=== PATIENT | male | born 1970 | race American Indian/Alaskan Native ===

== ENCOUNTER 2017-02-08 18:13 | Emergency (ER) | payer OTHER ==
[2017-02-08 19:15] LABS: Basophils % (Auto) 0.4 % (0.0-1.8); Eosinophils % (Auto) 0.2 % (0.0-4.3); Hematocrit 48.6 % (35.5-45.6); Hemoglobin 15.6 gm/dl (11.8-15.2); Mean Corpuscular HGB Conc 32 % (32-34); Mean Corpuscular Volume 78 fl (84-94); Platelet Count 279 K/mm3 (140-440); Red Blood Count 6.26 M/mm3 (3.65-5.03); Red Cell Distribution Width 14.6 % (13.2-15.2); White Blood Count 8.8 K/mm3 (4.5-11.0)
[2017-02-08 19:17] LABS: Mean Corpuscular Hemoglobin 25 pg (28-32)
[2017-02-08 19:25] LABS: Anion Gap 21 mmol/L; Blood Urea Nitrogen 8 mg/dL (9-20); Calcium 9.4 mg/dL (8.4-10.2); Carbon Dioxide 25 mmol/L (22-30); Glucose 175 mg/dL (75-100); Potassium 4.4 mmol/L (3.6-5.0); Sodium 140 mmol/L (137-145)
--- NOTE | 2017-02-09 03:00 | Emergency Department Report ---
ED Headache HPI - General Chief Complaint: Arrhythmia/Palpitations Stated Complaint: SHOULDER PAIN Time Seen by Provider: 02/09/17 02:54 Source: patient - History of Present Illness Initial Comments: Patient is a 46-year-old male with a history of several days of headache. He complains of pain in a bandlike sensation around his head intermittently 3-4 minutes at a time. He denies fevers chills nausea vomiting. He also states that he's had some heart palpitations off and on. He is going undergoing a significant amount of stress and is had episodes of anxiety in the past. He feels this is similar. He took some migraine medication with caffeine in it and he felt like it is set him off today. Currently all of his symptoms are resolved. Quality: moderate Head Injury Location: other (bandlike) Recent Head Trauma: no recent headache/trauma Associated Symptoms: denies: confusion, fatigue, facial pain, fever/chills Allergies/Adverse Reactions: Allergies No Known Allergies Allergy (Unverified 02/08/17 18:42) Home Medications: Ambulatory Orders Ibuprofen [Motrin 600 MG tab] 600 mg PO Q8H PRN #30 tablet 02/09/17 ED Review of Systems ROS: Stated complaint: SHOULDER PAIN Other details as noted in HPI Constitutional: denies: fever ENT: denies: ear pain, throat pain Cardiovascular: palpitations. denies: chest pain, dyspnea on exertion, orthopnea Gastrointestinal: denies: abdominal pain, nausea Musculoskeletal: denies: back pain, arthralgia Skin: denies: rash, lesions Neurological: headache. denies: weakness, numbness, paresthesias Psychiatric: denies: anxiety ED Past Medical Hx - Past Medical History Previous Medical History?: No - Surgical History Past Surgical History?: No - Family History Family history: no significant - Social History Smoking Status: Never Smoker Substance Use Type: None - Medications Home Medications: Home Medications Medication Instructions Recorded Confirmed Last Taken Type Ibuprofen [Motrin 600 MG tab] 600 mg PO Q8H PRN #30 tablet 02/09/17 Unknown Rx ED Physical Exam - General Limitations: No Limitations General appearance: alert, in no apparent distress - Head Head exam: Present: atraumatic, normocephalic - Eye Eye exam: Present: normal appearance - ENT ENT exam: Present: mucous membranes moist - Neck Neck exam: Present: normal inspection - Respiratory Respiratory exam: Present: normal lung sounds bilaterally. Absent: respiratory distress - Cardiovascular Cardiovascular Exam: Present: regular rate, normal rhythm. Absent: systolic murmur, diastolic murmur, rubs, gallop - GI/Abdominal GI/Abdominal exam: Present: soft, normal bowel sounds - Rectal Rectal exam: Present: deferred - Extremities Exam Extremities exam: Present: normal inspection - Back Exam Back exam: Present: normal inspection - Neurological Exam Neurological exam: Present: alert, oriented X3 - Psychiatric Psychiatric exam: Present: normal affect, normal mood - Skin Skin exam: Present: warm, dry, intact, normal color. Absent: rash ED Course Vital Signs 02/08/17 18:35 Temperature 98.4 F Pulse Rate 97 H Respiratory 18 Rate Blood Pressure 164/100 O2 Sat by Pulse 99 Oximetry ED Medical Decision Making - Lab Data Result diagrams: 02/08/17 18:54 02/08/17 18:54 Laboratory Results - last 24 hr 02/08/17 02/08/17 18:54 18:54 WBC 8.8 RBC 6.26 H Hgb 15.6 H Hct 48.6 H MCV 78 L MCH 25 L MCHC 32 RDW 14.6 Plt Count 279 Lymph % (Auto) 24.2 Ida % (Auto) 7.7 H Eos % (Auto) 0.2 Baso % (Auto) 0.4 Lymph # 2.1 Ida # 0.7 Eos # 0.0 Baso # 0.0 Seg Neutrophils % 67.5 Seg Neutrophils # 6.0 Sodium 140 Potassium 4.4 Chloride 98.0 Carbon Dioxide 25 Anion Gap 21 BUN 8 L Creatinine 0.8 Estimated GFR > 60 BUN/Creatinine Ratio 10.00 Glucose 175 H Calcium 9.4 Troponin T < 0.010 - EKG Data -: EKG Interpreted by Ks - EKG Data 02/09/17 02:58 Sinus rate of 98 and normal axis normal intervals poor R wave progression no ST- T wave changes - Medical Decision Making Isacc and is a 46-year-old male with a history of anxiety and stress here with complaint of headache palpitations. He states that all his symptoms are resolved currently. He feels like this is likely related to his anxiety. His workup appears negative he has a negative troponin and negative EKG. I do not suspect significant pathology. I discussed ways to reduce stress including exercise. Patient agrees with plan to increase his amount of exercise. Do not plan to start anxiety meds currently. Portions of this chart were dictated with dictation software. There may be dictation errors contained within this note. Critical care attestation.: If time is entered above; I have spent that time in minutes in the direct care of this critically ill patient, excluding procedure time. ED Disposition Clinical Impression: Palpitations, Headache Disposition: DC- TO HOME OR SELFCARE Is pt being admited?: No Does the pt Need Aspirin: No Condition: Undetermined Instructions: Tension Headache (ED), Palpitations (ED) Prescriptions: Ibuprofen [Motrin 600 MG tab] 600 mg PO Q8H PRN #30 tablet PRN Reason: Pain Referrals: PRIMARY CARE, [Primary Care Provider] - 3-5 Days
[2017-02-09 03:20] VITALS: BP 144/87
--- NOTE | 2017-02-09 07:19 | XRay Report ---
Chest 2 views: History: Shortness of breath. Findings: Normal cardiomediastinal silhouette. Trachea is midline. No consolidation, pneumothorax or pleural effusion. Impression: No acute cardiopulmonary findings.
== END 2017-02-09 03:19 | disposition home or self-care (01) ==
LOC: ED 18:13
DX: R00.2 Palpitations (principal); R51 Headache
CPT/HCPCS: 36415; 71020; 80048; 84484; 85025; 93005; 93010; 99284

== ENCOUNTER 2019-01-02 09:17 | Day surgery (SDC) | payer OTHER ==
--- NOTE | 2019-01-02 07:39 | Anesthesia Consultation ---
Anesthesia Consult and Med Hx Date of service: 01/02/19 - Airway Anesthetic Teeth Evaluation: Poor ROM Head & Neck: Adequate Mental/Hyoid Distance: Adequate Mallampati Class: Class II Intubation Access Assessment: Probably Good - Pulmonary Exam CTA: Yes - Cardiac Exam Cardiac Exam: RRR - Pre-Operative Health Status ASA Pre-Surgery Classification: ASA3 Proposed Anesthetic Plan: MAC
--- NOTE | 2019-01-02 07:40 | Anesthesia Day of Surgery ---
Anesthesia Day of Surgery - Day of Surgery Patient Examined: Yes Patient H&P Reviewed: Yes Patient is NPO: Yes Beta Blockers: No Cardiac Clearance: No Pulmonary Clearance: No
[~2019-01-02 09:17] MED LIST: NACL 0.9% 1000 ML 1,000 ML IV SCH
[2019-01-02] MEDS ORDERED: DIPRIVAN 10 MG/ML IV ONE ×2 (10:08)
--- NOTE | 2019-01-02 10:28 | Short Stay Summary ---
Short Stay Documentation Date of service: 01/02/19 Narrative H&P: Pt presents for screening colonoscopy. h/o bloating and bowel habit changes. No new gi complaints otherwise. no prior screening colonoscopy - History H&P: obtained from office Past Medical History: other (see office note) Past Surgical History: Other (no changes) Social history: no significant social history - Allergies and Medications Current Medications: Allergies No Known Allergies Allergy (Verified 12/27/18 12:58) Home Medications Medication Instructions Recorded Confirmed Last Taken Type No Known Home Medications [No 01/02/19 01/02/19 Unknown History Reported Home Medications] Active Medications Sodium Chloride (Nacl 0.9% 1000 Ml) 1,000 mls @ 50 mls/hr IV DIRECT KATHERIN Stop: 01/02/19 20:00 Last Admin: 01/02/19 09:57 Dose: 50 mls/hr Documented by: - Physical exam General appearance: no acute distress Lungs: Clear to auscultation Heart: Regular rate, Normal S1, Normal S2 Gastrointestinal: normal - Brief post op/procedure progress note Date of procedure: 01/02/19 Pre-op diagnosis: screening colonoscopy Post-op diagnosis: other (small colon polyp removed) Procedure: Colonoscopy with biopsy Anesthesia: MAC Findings: small colon polyp removed with cold biopsy forceps internal hemorrhoids Surgeon: RAMIREZ WRIGHT Estimated blood loss: minimal Pathology: list (Jar A - transverse colon polyp) Specimen disposition: to lab Condition: stable - Disposition Condition at discharge: Good Disposition: DC-01 TO HOME OR SELFCARE Short Stay Discharge Plan Follow up with: SELMA CORDOVA MD [Primary Care Provider] - 7 Days
--- NOTE | 2019-01-02 10:30 | Operative Report ---
Operative Report Operative Report: Colonoscopy Procedure Note with Biopsy Date of procedure: 01/02/2019 Endoscopist: Hemant Cramer Pre-op diagnosis: Screening for colon cancer Post-op diagnosis: Small colon polyp, internal hemorrhoids Anesthesia: MAC Complications: No immediate complications Estimated blood loss: minimal Procedure: After consent was obtained, the patient was placed in the left lateral decubitus position. The olympus colonoscope was inserted into the patient's rectum under direct vision, and advanced to the cecum without difficulty. The patient tolerated the procedure well. The views of the mucosa were good. The quality of prep was good. The patient's vital signs were monitored continuously throughout the procedure. Findings: There was a < 2 mm sessile polyp in the transverse colon. The polyp was removed and retrieved with cold biopsy forceps. Internal hemorrhoids were visualized on retroflexion view. Otherwise, the colon appeared normal. Impression: 1. Small colon polyp removed with cold biopsy forceps 2. Internal hemorrhoids Recommendations: -follow up pathology -repeat colonoscopy in 5 years for surveillance -follow-up in GI clinic as scheduled
[2019-01-02] MEDS ORDERED: WATER FOR IRRIG STERILE IR ONE (10:39)
[2019-01-02 11:23] VITALS: BP 128/81
== END 2019-01-02 09:18 | disposition home or self-care (01) ==
LOC: GIO 09:17
PROVIDERS: ATTEND Internal Medicine Gastroenterology
DX: D12.3 Benign neoplasm of transverse colon (principal); K64.8 Other hemorrhoids; G43.909 Migraine, unspecified, not intractable, without status migrainosus; Z79.899 Other long term (current) drug therapy
CPT/HCPCS: 45380; 88305; J2704; J7030